=== PATIENT | male | born 1945 | race Caucasian/White ===

== ENCOUNTER 2016-05-03 09:08 | Day surgery (SDC) | payer MEDICARE, OTHER ==
[~2016-05-03] VITALS: Ht 175.3 cm; Wt 67.0 kg
[~2016-05-03 09:08] MED LIST: 0.9% Sodium Chloride 1,000 ML IV SCH; GABA-502 PO; HYDR-3740 PO; HYG25 PO; SERT50TA9 PO; Sodium Chloride LOK Flush 10 mL Syringe IV PRN; fentaNYL-PF 50 mCg/mL 2 mL Inj IVPUSH PRN
[2016-05-03 09:28] VITALS: BP 116/84; PULSE 67; RESP 16; O2SAT 99
[2016-05-03 10:22] VITALS: BP 116/71; PULSE 67; O2SAT 93
[2016-05-03 10:40] VITALS: BP 104/65; PULSE 62; RESP 14; O2SAT 92
[2016-05-03 10:53] VITALS: BP 120/72; PULSE 58; O2SAT 95
--- NOTE | 2016-05-03 11:05 | ENDO ---
[address] [address] ENDOSCOPY PROCEDURE PATIENT: REYMUNDO VELÁZQUEZ : 1945 MR#: [id number] ADMIT: 05/03/2016 JOB ID: [id number] DATE OF SERVICE: 05/03/2016 TYPE OF OPERATION: Flexible sigmoidoscopy with Endoloop placement and snare polypectomy x3. PREOPERATIVE DIAGNOSIS(ES): History of colon polyps. POSTOPERATIVE DIAGNOSIS(ES): 1. A 3 cm pedunculated polyp seen, status post Endoloop and snare polypectomy performed without evidence of bleeding. 2. There were two 1 cm polyps removed in the sigmoid colon, status post hot snare polypectomy. ANESTHESIA: Fentanyl 150 mcg, Versed 8 mg IV administered. DESCRIPTION OF PROCEDURE: After risks and benefits explained to the patient, informed consent was obtained. After anesthesia administered, a flexible sigmoidoscopy was performed from the rectum to the sigmoid colon at 60 cm from the anus. Prep of the patient was excellent. After procedure was done, the scope withdrawn and procedure terminated. FINDINGS: Upon inspection of the anus, no masses, hemorrhoids, ulcers, fissures that were seen. Throughout the entire examination, there were two 1 cm polyps seen in the sigmoid colon, removed by hot snare polypectomy. There was also a 3 cm sigmoid colon polyp, pedunculated, that was seen. An Endoloop was first placed at the base of the polyp and afterwards, a hot snare polypectomy was performed just above the Endoloop without any evidence of bleeding. IMPRESSIONS: 1. Two 1 cm polyp, status post hot snare polypectomy, in the sigmoid colon. 2. A 3 cm pedunculated sigmoid colon polyp, status post Endoloop, status post hot snare polypectomy. RECOMMENDATIONS: Await pathology results. Repeat colonoscopy in one year.
--- NOTE | 2016-05-04 15:12 | PATH ---
SURGICAL PATHOLOGY Attending Physician:Castro Salgado MD CASE STATUS: Signed Out PATIENT NAME: REYMUNDO VELÁZQUEZ PID: [id number] : 1945 DATE COLLECTED:05/03/2016 16:50 SPECIMEN: Colon, Biopsy CLINICAL HISTORY: A: SIGMOID POLYPS X3 FINAL DIAGNOSIS: 1.SIGMOID COLON POLYPS: TUBULOVILLOUS ADENOMA, 1. TUBULAR ADENOMAS, 2. NO EVIDENCE OF MALIGNANCY. ICD10 CODE D12.5 GROSS DESCRIPTION: The specimen is received in one formalin filled container labeled with the patient's name, sublabeled "sigmoid polyps x3" and consists of 3 portions of tissue which aggregate to 2.0 x 1.7 x 2.5 CM. The 2 smallest portions are entirely submitted in cassette A. The largest piece is sectioned into multiple pieces and entirely submitted in cassettes B., C., D. 05/03/2016 DAC MICRO DESCRIPTION: See diagnosis. ICD-9 CODES: CPT CODES: 1: 81869 Electronically Signed Out Regina Grady MD [facility] [address], [place] [address] Technical component performed at [facility], [address] [place] [address] Ave[address], [place], [address]
== END 2016-05-03 23:59 | disposition home or self-care (01) ==
LOC: END 09:08
PROVIDERS: ATTEND Internal Medicine Gastroenterology
DX: D12.5 Benign neoplasm of sigmoid colon (principal); R19.5 Other fecal abnormalities; I10 Essential (primary) hypertension; K40.91 Unilateral inguinal hernia, without obstruction or gangrene, recurrent; M19.90 Unspecified osteoarthritis, unspecified site; Z79.891 Long term (current) use of opiate analgesic; Z87.891 Personal history of nicotine dependence
CPT/HCPCS: 45338; 88305; 99153; G0500; J2250; J7030